=== PATIENT | female | born 1985 | race Caucasian/White ===

== ENCOUNTER 2017-05-03 17:31 | Emergency (ER) | payer OTHER ==
[~2017-05-03] VITALS: Ht 149.9 cm; Wt 86.6 kg
[~2017-05-03 17:31] MED LIST: PRENTAB26 PO
[2017-05-03 17:34] VITALS: TEMP 36.6; Ht 149.9 cm; Wt 86.6 kg
[2017-05-03] MEDS ORDERED: SODIUM CHLORIDE 0.9% 1000ML 1,000 ML IV STA (17:51)
[2017-05-03] MEDS ORDERED: DiphenhydrAMINE HCL 50 MG/ML VIAL IV STA (17:51)
[2017-05-03] MEDS ORDERED: FAMOTIDINE 20MG/5ML IV PUSH IV STA (17:51)
[2017-05-03] MEDS ORDERED: METHYLPREDNISOLONE 125 MG VIAL IV STA (17:51)
[2017-05-03] MEDS ORDERED: ASPI15TA PO (18:32)
[2017-05-03] MEDS ORDERED: IBUP-103 PO (18:32)
[2017-05-03] MEDS ORDERED: RANI150T3 PO (18:50)
[2017-05-03] MEDS ORDERED: PRED20TA2 PO (18:50)
[2017-05-03 19:00] VITALS: BP 151/53; PULSE 84; O2SAT 100
--- NOTE | 2017-05-03 19:06 | EMERGENCY ROOM VISIT NOTE ---
History Report prepared by Chris: Danny Dove Under the Supervision of: Dr. Roney Disla M.D. First contact with patient: 17:48 Chief Complaint: ALLERGIC REACTION Stated Complaint: ALLERGIC REACTION;RASH ALL OVER Nursing Triage Summary: Pt states, "I was at work. About an hour after I got there I got an itch and it's just been getting worse. It's on my arms, chest and back. I took two Benadryl. I have a tickle in my throat. It feels like my skin is burning." Denies sob or trouble swallowing. Sx began approx 1540. Pt states the only time this happened in the past was with Tide laundry detergent which she no longer uses. 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 She notes she started to feel itchy at work. She notes the rash is spreading to her back, chest, and bilateral arms. She describes the itching as "it feels like it is on fire." She currently rates her pain an 8/10 in severity. She took OTC Benadryl 3.5 hours ago. She notes that she has had a similar rash in the past. She denies shortness of breath and difficulty swallowing. She denies taking any antibiotics. 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 Review of Systems See HPI for pertinent positives & negatives. A total of 10 systems reviewed and were otherwise negative. Past Medical & Surgical Medical Problems: (1) Surgical Problems: (1) History of cholecystectomy Family History Diabetes mellitus FH: cancer FH: gallbladder disease Heart disease No pertinent family history Social History Smoking Status: Current Every Day Smoker Drug Use: none Marital Status: Housing Status: lives with family Occupation Status: employed Current/Historical Medications Scheduled Prednisone (Prednisone Tab), 0 PO DAILY Ranitidine Hcl (Zantac), 1 TAB PO BID Scheduled PRN Aspirin-Caffeine (Back & Body Extra Strengt), 1 TAB PO UD PRN for Pain Ibuprofen Tab (Advil), 400-600 MG PO Q6H PRN for Pain Allergies Coded Allergies: Acetaminophen (Verified Allergy, Unknown, vomiting, 05/10/15) Physical Exam Vital Signs Date Time Temp Pulse Resp B/P (MAP) Pulse Ox O2 Delivery O2 Flow Rate FiO2 05/03/17 19:00 84 18 151/53 100 05/03/17 18:35 84 18 151/53 100 Room Air 05/03/17 17:34 36.6 104 18 124/85 97 Room Air Physical Exam GENERAL: Patient is a healthy-appearing well-nourished young female. HEAD: Normocephalic atraumatic EYES: Ocular movements intact pupils equal and react to light OROPHARYNX mucous membranes are moist no exudates present no erythema or edema present NECK: Supple no nuchal rigidity CHEST: Good equal expansion LUNGS: Clear and equal to auscultation. No stridor or wheezing on exam. CARDIAC: Normal S1 and S2 ABDOMEN: Soft nontender no guarding BACK: No CVA tenderness EXTREMITIES: No pain upon palpation normal muscle strength in all groups no clubbing cyanosis or edema SKIN: Urticarial itchy rash present on the patient's back, chest, and bilateral arms. NEURO: Patient is following commands and answering questions appropriately. Alert and oriented x3 Cranial Nerves 2-12 grossly intact Medical Decision & Procedures Medications Administered Medications (Trade) Dose Ordered Sig/Sherrie Route Start Time Stop Time Status Last Admin Dose Admin Sodium Chloride 1,000 ml @ 999 mls/hr Q1H1M STAT IV 05/03/17 17:51 05/03/17 18:51 DC 05/03/17 18:07 999 MLS/HR Methylprednisolone Sodium Succinate (Solu-Medrol IV) 125 mg NOW STAT IV 05/03/17 17:51 05/03/17 17:53 DC 05/03/17 18:07 125 MG Famotidine (Pepcid 20mg Iv Push) 20 mg ONE STAT IV 05/03/17 17:51 05/03/17 17:53 DC 05/03/17 18:07 20 MG Diphenhydramine HCl (Benadryl Inj) 25 mg NOW STAT IV 05/03/17 17:51 05/03/17 17:53 DC 05/03/17 18:07 25 MG ED Course 1748: Past medical records reviewed. The patient was evaluated in room B11B. A complete history and physical examination was performed. 1751: Ordered Benadryl 25 mg IV, Famotidine 20 mg IV, Solu-Medrol 125 mg IV, and NSS 1,000 ml @ mls/hr 1848: I reassessed the patient at this time. The patient's rash has dissipated. She is feeling better and resting comfortably. I discussed the results and treatment plan with the patient. I answered all pertaining questions that she had. She expressed understanding and verbalized agreement. The patient will be discharged home. Medical Decision Prior records/ancillary studies reviewed. Triage Nursing notes reviewed. The patient's history was concerning for possible allergic reaction. Differential diagnosis: Etiologies such as allergic reaction, anaphylaxis, urticaria, Prado-Eusebio syndrome, toxic epidermal necrolysis, erythema multiforme, cellulitis, as well as others were entertained. This is a 32-year-old female who presents emergency department whose complaining of a allergic reaction. Patient has had a similar allergic reaction when exposed to tide detergent products. She is only taking Benadryl today. She has no wheezing or stridor on examination. An IV was established, the patient was given Solu-Medrol, fluid, Zantac, Benadryl. Repeat examination revealed improvement patient's symptoms. I do feel patient is well enough to be discharged home. 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 Patient was in agreement with the treatment plan. Medication Reconcilliation Current Medication List: was personally reviewed by me Blood Pressure Screening Patient's blood pressure: Normal blood pressure Impression Primary Impression: Allergic reaction Scribe Attestation The scribe's documentation has been prepared under my direction and personally reviewed by me in its entirety. I confirm that the note above accurately reflects all work, treatment, procedures, and medical decision making performed by me. Departure Information Dispostion Home / Self-Care Prescriptions Ranitidine Hcl (ZANTAC) 150 Mg Tab 1 TAB PO BID for 10 Days, #20 TAB Prov: Roney Disla MD 05/03/17 Prednisone (Prednisone Tab) 20 Mg Tab 0 PO DAILY, #7 TAB 2 TABS DAILY FOR 2 DAYS, THEN 1 TAB DAILY FOR 2 DAYS, THEN 1/2 TAB DAILY FOR 2 DAYS. Prov: Roney Disla MD 12/8/17 Referrals Mary Nava M.D.(PATROL LADY/OB) (PCP) Forms HOME CARE DOCUMENTATION FORM, IMPORTANT VISIT INFORMATION, School Instructions, Work Instructions Patient Instructions My [facility] [place] eventuosity Additional Instructions Use 50 mg Benadryl every 6 hours You have been examined and treated today on an emergency basis only. This is not a substitute for, or an effort to provide, complete comprehensive medical care. It is impossible to recognize and treat all injuries or illnesses in a single emergency department visit. It is therefore important that you follow up closely with your PCP. Call as soon as possible for an appointment. Thank you for your time and consideration. I look forward to speaking with you again soon. Please don't hesitate to call us if you have any questions. Problem Qualifiers Primary Impression: Allergic reaction Encounter type: initial encounter Qualified Codes: T78.40XA - Allergy, unspecified, initial encounter
== END 2017-05-03 19:07 | disposition home or self-care (01) ==
LOC: C.EDB 17:33
DX: T78.40XA Allergy, unspecified, initial encounter (principal); X58.XXXA Exposure to other specified factors, initial encounter; F17.210 Nicotine dependence, cigarettes, uncomplicated; Z83.3 Family history of diabetes mellitus; Z80.9 Family history of malignant neoplasm, unspecified; Z83.79 Family history of other diseases of the digestive system; Z82.49 Family history of ischemic heart disease and other diseases of the circulatory system